=== PATIENT | male | born 1955 | race Hispanic/Latino ===

== ENCOUNTER 2023-08-20 10:21 | Inpatient (IN) | payer OTHER ==
[~2023-08-20 10:21] MED LIST: Iopamidol 370 76% 100 ML VIAL ONE
[2023-08-20 10:56] LABS: Actual Bicarbonate (HCO3v) 21.4 mEq/L (22-28); Analyzer IN Cardio CS ICU; Calcium, Ionized (venous) 1.01 mmol/L (1.16-1.32); Chloride (VBG) 95 mmol/L (98-106); Hematocrit-VBG 41 % (42.0-52.0); Hemoglobin (Hb) 13.9 g/dL (12.6-17.4); Potassium (VBG) 3.97 mmol/L (3.70-5.30); Puncture Site Other Site; RapidComm Collect By LAB TECH; Sodium 128 mmol/L (133-146); pH (venous) 7.521 (7.32-7.43)
[2023-08-20 11:25] LABS: ALT (SGPT) 33 U/L (8-55); AST (SGOT) 37 U/L (5-34); Albumin 3.6 g/dL (3.4-4.8); Alkaline Phosphatase 97 U/L (40-110); Anion Gap 13 mmol/L (10-20); BUN (Urea Nitrogen) 12 mg/dL (8.4-25.7); Bilirubin, Total 0.8 mg/dL (0.2-1.2); Calc. Creatinine Clearance 0 mL/min (70-130); Calcium 8.2 mg/dL (7.8-10.44); Carbon Dioxide 21 mmol/L (23-31); Chloride 96 mmol/L (98-107); Estimated GFR 85; Glucose 138 mg/dL (80-115); Potassium 4.2 mmol/L (3.5-5.1); Protein, Total 7.6 g/dL (5.8-8.1); Sodium 126 mmol/L (136-145)
[2023-08-20 11:31] LABS: Hematocrit 37.8 % (38.8-50.0); Hemoglobin 13.2 g/dL (13.5-17.5); Mean Corpuscular HGB CONC 34.9 g/dL (32.0-36.0); Mean Corpuscular Volume 91.5 fl (81.2-95.1); Mean Platelet Volume 8.4 fl (7.4-10.4); Platelet Count 395 10x3/uL (150-450); RBC Distribution Width 12.8 % (11.5-14.5); Red Blood Cell (RBC) Count 4.13 10x6/uL (4.32-5.72); Troponin I 0.017 ng/mL (< 0.028); White Blood Cell (WBC) Count 27.3 10x3/uL (3.5-10.5)
[2023-08-20 11:41] LABS: MDiff Complete? YES
[2023-08-20] MEDS ORDERED: cefTRIAXone (ROCEPHIN) 1 GM VIAL ONE (12:12)
[2023-08-20] MEDS ORDERED: Azithromycin 500 MG VIAL ONE (12:15)
[2023-08-20] MEDS ORDERED: cefTRIAXone (ROCEPHIN) 2 GM VIAL ONE (12:15)
[2023-08-20] MEDS: VANCOMYCIN 2 GRAM/400 ML BAG 2 GM in Premix 1 BAG IVPB SCH (13:00)
[2023-08-20 14:12] LABS: Bilirubin Neg (Negative); Blood, Urine 50 (Negative); Clarity Slightly Cloudy (Clear); Glucose, Urine (Dipstick) Normal (Negative); Ketone, Urine Negative (Negative); Leukocyte 500 (Negative); Nitrite Positive (Negative); Protein, Urine (Dipstick) 30 mg/dl (Neg-Trace); Specific Gravity, Urine 1.005 (1.005-1.030); Urobilinogen Normal mg/dL (Less than 2)
[2023-08-20 14:14] LABS: Band 14 % (5-11); Eosinophils 1 % (0-10); Metamyelocyte 1 % (0-0); Monocytes 4 % (0-10)
[2023-08-20 14:17] LABS: Lymphocytes 6 % (21-51)
[2023-08-20 14:21] LABS: Neutrophil 74 % (42-75)
[2023-08-20 14:24] LABS: Platelet Adequacy Comment Appears Adequate; RBC Morph Comment Within Normal Limits
[2023-08-20 14:34] LABS: Bacteria/HPF 2+ HPF (None Seen); CAUTI Indications for Culture Dysuria,urgency,freq; Squamous Epithelial 0-3 HPF (0-3)
[2023-08-20 14:35] LABS: Urine Culture Reflex Yes Yes
[2023-08-20 15:24] LABS: Influenza A by NAA Not Detected (NotDetected); Influenza B by NAA Not Detected (NotDetected); SARS-CoV-2 NAA Rapid Test Not Detected (NotDetected)
[2023-08-20] MEDS ORDERED: Acetaminophen 325 MG TAB PO PRN (15:51)
[2023-08-20] MEDS ORDERED: Ondansetron PF 4 MG/2 ML Vial IVP PRN (15:51)
[2023-08-20] MEDS ORDERED: Ondansetron ODT 4 MG TAB PO PRN (15:51)
[2023-08-20] MEDS ORDERED: HumaLOG 300 UNITS/3 ML VIAL SC PRN (16:39)
[2023-08-20] MEDS ORDERED: Dextrose 5% in Water 1,000 ML IV PRN (16:39)
[2023-08-20] MEDS ORDERED: Glucagon 1 MG/ML KIT IM PRN (16:39)
[2023-08-20] MEDS ORDERED: Dextrose 50% Abboject 50 ML SYRINGE SLOW IVP PRN (16:39)
[2023-08-20] MEDS: Sodium Chloride 0.9% 1,000 ML IV SCH (17:06)
[2023-08-20 20:22] VITALS: BMI 46.9
[2023-08-20] MEDS: HumaLOG 300 UNITS/3 ML VIAL SC PRN (20:34)
[2023-08-20] MEDS: Ferrous Sulfate 325 MG TAB PO SCH (20:35)
[2023-08-20] MEDS: Docusate 100 MG CAP PO SCH (20:35)
[2023-08-20 22:01] LABS: Hemoglobin A1c 6.4 % (4.0-6.0)
[2023-08-21 05:47] LABS: Anion Gap 11 mmol/L (10-20); BUN (Urea Nitrogen) 13 mg/dL (8.4-25.7); Calc. Creatinine Clearance 164 mL/min (70-130); Calcium 8.8 mg/dL (7.8-10.44); Carbon Dioxide 22 mmol/L (23-31); Chloride 102 mmol/L (98-107); Estimated GFR 95; Glucose 186 mg/dL (80-115); Potassium 3.9 mmol/L (3.5-5.1); Sodium 131 mmol/L (136-145)
[2023-08-21 05:54] LABS: #Basophils 0.1 10x3/uL (0.0-0.2); #Monocytes 1.4 10x3/uL (0.0-1.1); #Neutrophils 27.2 10x3/uL (1.5-8.4); %Basophils 0.2 % (0.0-2.0); %Lymphocytes 3.4 % (18.0-47.0); %Monocytes 4.6 % (0.0-10.0); %Neutrophils 90.8 % (40.0-75.0); Hematocrit 35.8 % (38.8-50.0); Mean Corpuscular HGB CONC 33.5 g/dL (32.0-36.0); Mean Corpuscular Hemoglobin 31.2 pg (27.0-33.0); Mean Platelet Volume 8.5 fl (7.4-10.4); Platelet Count 407 10x3/uL (150-450); RBC Distribution Width 12.8 % (11.5-14.5); Red Blood Cell (RBC) Count 3.85 10x6/uL (4.32-5.72)
[2023-08-21] MEDS ORDERED: FLU VACC QS2023(65UP)/MF59C/PF 60 MCG/0.5 ML SYRINGE IM ONE (09:00)
[2023-08-21] MEDS: Amlodipine 10 MG TAB PO SCH (09:55)
[2023-08-21] MEDS: Rivaroxaban 10 MG TAB PO SCH (09:56)
[2023-08-21] MEDS: Atorvastatin Calcium 40 MG TAB PO SCH (09:56)
[2023-08-21] MEDS: Loratadine 10 MG TAB PO SCH (09:57)
[2023-08-21] MEDS: FLUoxetine HCl 20 MG CAP PO SCH (09:57)
[2023-08-21] MEDS: Lisinopril 20 MG TAB PO SCH (09:57)
[2023-08-21] MEDS: cefTRIAXone\\ROCEPHIN 1 GM in Sodium Chloride 0.9% 100 ML IVPB SCH (12:14)
[2023-08-22] MEDS: Mag-Al 1200 mg/1200 mg/30 ML UDCUP PO SCH (01:10)
[2023-08-22 05:42] LABS: Anion Gap 11 mmol/L (10-20); BUN (Urea Nitrogen) 11 mg/dL (8.4-25.7); Calc. Creatinine Clearance 200 mL/min (70-130); Calcium 8.1 mg/dL (7.8-10.44); Carbon Dioxide 22 mmol/L (23-31); Chloride 103 mmol/L (98-107); Estimated GFR 101; Glucose 115 mg/dL (80-115); Potassium 3.5 mmol/L (3.5-5.1); Sodium 132 mmol/L (136-145)
[2023-08-22 05:51] LABS: #Eosinphils 0.1 10x3/uL (0.0-0.5); #Monocytes 0.9 10x3/uL (0.0-1.1); #Neutrophils 13.2 10x3/uL (1.5-8.4); %Basophils 0.2 % (0.0-2.0); %Eosinophils 0.8 % (0.0-6.0); %Lymphocytes 8.8 % (18.0-47.0); %Monocytes 5.6 % (0.0-10.0); %Neutrophils 83.2 % (40.0-75.0); Hematocrit 34.5 % (38.8-50.0); Hemoglobin 11.5 g/dL (13.5-17.5); Mean Corpuscular HGB CONC 33.3 g/dL (32.0-36.0); Mean Corpuscular Hemoglobin 30.7 pg (27.0-33.0); Mean Platelet Volume 8.6 fl (7.4-10.4); Platelet Count 402 10x3/uL (150-450); Red Blood Cell (RBC) Count 3.75 10x6/uL (4.32-5.72); White Blood Cell (WBC) Count 15.8 10x3/uL (3.5-10.5)
[2023-08-22 12:40] VITALS: BP 142/82; TEMP 98.4
== END 2023-08-22 15:25 | DRG 872 ==
LOC: EEVIPCON 10:21 → CSHERS 10:21 → CSHTELE 15:33
PROVIDERS: ADMIT Internal Medicine; ATTEND Internal Medicine
DX: A41.9 Sepsis, unspecified organism (principal); N39.0 Urinary tract infection, site not specified; E87.1 Hypo-osmolality and hyponatremia; Z68.42 Body mass index [BMI] 45.0-49.9, adult; E78.5 Hyperlipidemia, unspecified; I10 Essential (primary) hypertension; E11.9 Type 2 diabetes mellitus without complications; D64.9 Anemia, unspecified; F32.A Depression, unspecified; E66.01 Morbid (severe) obesity due to excess calories; Z79.01 Long term (current) use of anticoagulants; Z79.899 Other long term (current) drug therapy; Z86.718 Personal history of other venous thrombosis and embolism
CPT/HCPCS: 36415; 36416; 71045; 71275; 74177; 80048; 80053; 81001; 82805; 83036; 83605; 83880; 84484; 85025; 87040; 87086; 93005; 93970; 94760; 94762; J0456; J0696; J1815; J3370; J3490; J7050; Q9967